=== PATIENT | male | born 1980 | race Caucasian/White ===

== ENCOUNTER 2017-07-14 19:52 | Emergency (ER) | payer OTHER ==
[~2017-07-14] VITALS: Ht 182.9 cm; Wt 104.5 kg
[2017-07-14] MEDS ORDERED: IBUP-1022 PO (22:27)
[2017-07-14] MEDS ORDERED: CYCL10TA PO (22:27)
[2017-07-14] MEDS ORDERED: CYCLOBENZAPRINE 10 MG TAB PO ONE (22:30)
[2017-07-14] MEDS ORDERED: IBUPROFEN 600 MG TAB PO ONE (22:30)
[2017-07-14 22:35] VITALS: BP 145/78
== END 2017-07-14 22:35 | disposition home or self-care (01) ==
LOC: M ED 19:52
DX: S46.812A Strain of other muscles, fascia and tendons at shoulder and upper arm level, left arm, initial encounter (principal); X50.9XXA Other and unspecified overexertion or strenuous movements or postures, initial encounter; Y92.59 Other trade areas as the place of occurrence of the external cause; Y93.89 Activity, other specified; Y99.8 Other external cause status; F41.9 Anxiety disorder, unspecified; F33.9 Major depressive disorder, recurrent, unspecified; F17.210 Nicotine dependence, cigarettes, uncomplicated

== ENCOUNTER 2019-01-11 20:41 | Emergency (ER) | payer OTHER ==
[~2019-01-11] VITALS: Ht 182.9 cm; Wt 102.3 kg
[2019-01-11 20:41] VITALS: BP 144/78
[~2019-01-11 20:41] MED LIST: CYCL10TA PO; IBUP-1022 PO
[2019-01-11] MEDS ORDERED: IBUP-1022 PO (21:41)
[2019-01-11] MEDS ORDERED: CYCL10TA PO (21:41)
[2019-01-11] MEDS ORDERED: CARISOPRODOL 350 MG TAB PO ONE (22:00)
== END 2019-01-11 22:06 | disposition home or self-care (01) ==
LOC: M ED 20:41
DX: S29.012A Strain of muscle and tendon of back wall of thorax, initial encounter (principal); X58.XXXA Exposure to other specified factors, initial encounter; Y92.89 Other specified places as the place of occurrence of the external cause

== ENCOUNTER 2019-11-07 14:42 | Emergency (ER) | payer OTHER ==
[~2019-11-07] VITALS: Ht 182.9 cm; Wt 115.8 kg
[2019-11-07 16:45] LABS: BASO # 0.1 10^3/uL (0.0-0.2); BASO % 0.5 % (0.0-1.0); EOS # 0.6 10^3/uL (0.0-0.5); EOS % 3.5 % (0.0-3.0); HEMATOCRIT 44.2 % (42.0-52.0); HEMOGLOBIN 14.9 g/dl (13.5-17.5); LYMPH # 1.9 10^3/uL (1.5-5.0); LYMPH % 10.6 % (24.0-44.0); MEAN CORPUSCULAR HEMOGLOBIN 28.7 pg (27.0-33.0); MEAN CORPUSCULAR HGB CONC 33.7 g/dl (32.0-36.5); MONO # 1.2 10^3/uL (0.0-0.8); MONO % 6.6 % (0.0-5.0); NEUTROPHILS # 14.3 10^3/uL (1.5-8.5); NEUTROPHILS % 78.3 % (36.0-66.0); PLATELET COUNT, AUTOMATED 349 10^3/uL (150-450); WHITE BLOOD COUNT 18.3 10^3/uL (4.0-10.0)
[2019-11-07 17:06] LABS: ALBUMIN 4.5 GM/DL (3.2-5.2); ALT/SGPT 94 U/L (12-78); BILIRUBIN,DIRECT 0.2 MG/DL (0.0-0.2); BILIRUBIN,TOTAL 0.8 MG/DL (0.2-1.0); BLOOD UREA NITROGEN 17 MG/DL (7-18); CALCIUM LEVEL 9.6 MG/DL (8.5-10.1); CARBON DIOXIDE LEVEL 27 MEQ/L (21-32); CHLORIDE LEVEL 106 MEQ/L (98-107); GLOMERULAR FILTRATION RATE > 60.0 (>60); GLUCOSE, FASTING 96 MG/DL (70-100); LIPASE 114 U/L (73-393); POTASSIUM SERUM 4.1 MEQ/L (3.5-5.1); SODIUM LEVEL 142 MEQ/L (136-145); TOTAL PROTEIN 7.4 GM/DL (6.4-8.2)
[2019-11-07] MEDS ORDERED: KETOROLAC TROMETHAMINE 10 MG TAB PO ONE (18:00)
--- NOTE | 2019-11-07 19:15 | REPVR ---
PROCEDURE INFORMATION: Exam: US Abdomen Limited, Right Upper Quadrant Exam date and time: 11/07/2019 6:35 PM Age: 39 years old Clinical indication: Abdominal pain; Acute; Additional info: Ruq pain TECHNIQUE: Imaging protocol: Real-time ultrasound of the abdomen with image documentation. Examination was focused on the right upper quadrant. COMPARISON: No relevant prior studies available. FINDINGS: Liver: There is increased echotexture of the liver likely due to fatty infiltration. The right lobe was not measured. Gallbladder: No calculi are seen within the gallbladder nor is there wall thickening. A sonographic Michael sign is not recorded. Common bile duct: The common bile duct is poorly visualized but appears to measures 6 mm which is upper limits of normal. Pancreas: The pancreas is obscured by overlying bowel gas. Right kidney: The right kidney measures 13.2 cm in length. There is no hydronephrosis. IMPRESSION: No evidence of cholelithiasis or cholecystitis. Probable fatty infiltration of the liver. Electronically signed by: Gricelda Shaw On 11/07/2019 19:15:25 PM
[2019-11-07] MEDS ORDERED: NS 1,000 ML IV ONE (19:30)
[2019-11-07] MEDS ORDERED: ISOVUE-370 76% 100ML VIAL (Q9967) As Ordered ONE (19:36)
--- NOTE | 2019-11-07 20:33 | REPVR ---
PROCEDURE INFORMATION: Exam: CT Abdomen And Pelvis With Contrast Exam date and time: 11/07/2019 7:44 PM Age: 39 years old Clinical indication: Abdominal pain; Localized; Right upper quadrant (ruq); Additional info: Ruq pain TECHNIQUE: Imaging protocol: Computed tomography of the abdomen and pelvis with intravenous contrast. Radiation optimization: All CT scans at this facility use at least one of these dose optimization techniques: automated exposure control; mA and/or kV adjustment per patient size (includes targeted exams where dose is matched to clinical indication); or iterative reconstruction. Contrast material: ISOVUE 370; Contrast volume: 100 ml; Contrast route: IV; COMPARISON: GALLBLADDER US 11/07/2019 6:33 PM FINDINGS: Lungs: No lesions of the lung bases. Liver: There is a diffuse decrease in hepatic parenchymal density, consistent with fatty infiltration. Gallbladder and bile ducts: The gallbladder is normal. Pancreas: The pancreas is normal. Spleen: The spleen is normal. Adrenals: The adrenal glands are normal. Kidneys and ureters: The kidneys are normal. Stomach and bowel: There is no evidence of intestinal obstruction. Appendix: A normal appendix is identified. Intraperitoneal space: Unremarkable. No free air. No significant fluid collection. Vasculature: The aorta is normal. Lymph nodes: Unremarkable. No enlarged lymph nodes. Bladder: The bladder is unremarkable. Reproductive: Unremarkable as visualized. Bones/joints: Unremarkable. No acute fracture. Soft tissues: There is a fat-containing umbilical hernia. IMPRESSION: No acute findings. Diffuse fatty infiltration of the liver. Electronically signed by: Gricelda Shaw On 11/07/2019 20:33:28 PM
[2019-11-07 21:18] VITALS: BP 146/82
[2019-11-07] MEDS ORDERED: VENTAER INH (22:28)
[2019-11-07] MEDS ORDERED: AZIT-12 PO (22:28)
[2019-11-07] MEDS ORDERED: AZITHROMYCIN 250 MG TAB PO ONE (22:30)
--- NOTE | 2019-11-08 07:58 | REP ---
Clinical: Right-sided chest pain. Technique: PA and lateral. Comparison: None. Findings: Mediastinum and cardiac silhouette normal. Lung lozano clear. No focal consolidation, effusion, or pneumothorax. Skeletal structures are intact. Impression: No acute elevation or effusion. Electronically Signed by Vito Francis MD 11/08/2019 07:50 A
== END 2019-11-07 22:41 | disposition home or self-care (01) ==
LOC: M ED 14:42
DX: J18.9 Pneumonia, unspecified organism (principal); K76.0 Fatty (change of) liver, not elsewhere classified; M54.9 Dorsalgia, unspecified; F41.9 Anxiety disorder, unspecified; F32.9 Major depressive disorder, single episode, unspecified; Z87.891 Personal history of nicotine dependence
CPT/HCPCS: 71046; 74177; 76705; 80048; 80076; 81001; 83605; 83690; 85025; 96360; 96361; 99284; Q9967

== ENCOUNTER 2021-01-29 22:37 | Emergency (ER) | payer OTHER ==
[~2021-01-29] VITALS: Wt 110.0 kg
[~2021-01-29 22:37] MED LIST changes: +AZIT-12 PO; +CYCL-707 PO; -CYCL10TA PO; +VENTAER INH
[2021-01-29] MEDS ORDERED: ACUL0.5S (22:43)
[2021-01-29] MEDS ORDERED: TIZA4TAB4 (22:43)
[2021-01-30] MEDS ORDERED: FLUORESCEIN OPHTH 1 MG STRIP OU ONE (01:10)
[2021-01-30] MEDS ORDERED: TETRACAINE 0.5% OPHTH SOLN 4ML OU ONE (01:10)
[2021-01-30] MEDS ORDERED: CIPROFLOXACIN 0.3% OPHTH SOLN 2.5ML OU ONE (01:30)
[2021-01-30] MEDS ORDERED: OLOP0.1D OP (01:31)
[2021-01-30] MEDS ORDERED: CIPR0.3S6 OP (01:31)
[2021-01-30 01:54] VITALS: BP 163/90
== END 2021-01-30 01:55 | disposition home or self-care (01) ==
LOC: M ED 22:37
DX: H10.13 Acute atopic conjunctivitis, bilateral (principal); S05.02XA Injury of conjunctiva and corneal abrasion without foreign body, left eye, initial encounter; X58.XXXA Exposure to other specified factors, initial encounter; Y92.89 Other specified places as the place of occurrence of the external cause; Y93.89 Activity, other specified; Y99.8 Other external cause status; Z79.1 Long term (current) use of non-steroidal anti-inflammatories (NSAID); Z79.899 Other long term (current) drug therapy